=== PATIENT | female | born 2000 | race Caucasian/White ===

== ENCOUNTER 2021-12-29 22:38 | Emergency (ER) | payer OTHER ==
[~2021-12-29] VITALS: Ht 172.7 cm; Wt 98.0 kg
[2021-12-29] MEDS ORDERED: ESCITALOPRAM OX10 MG PO (22:57)
[2021-12-30] MEDS ORDERED: ONDANSETRON ODT8 MG PO (01:47)
== END 2021-12-30 01:58 | disposition home or self-care (01) ==
LOC: ED 22:38
DX: K52.9 Noninfective gastroenteritis and colitis, unspecified (principal); Z79.899 Other long term (current) drug therapy
CPT/HCPCS: 36415; 74177; 80053; 81001; 83735; 84703; 85025; 96361; 96375; 96376; 99284-25; A9270; J2405; J2765; J7030; Q9967

== ENCOUNTER 2022-01-30 21:30 | Emergency (ER) | payer OTHER, BC ==
[~2022-01-30] VITALS: Ht 172.7 cm; Wt 92.5 kg
[~2022-01-30 21:30] MED LIST: ESCITALOPRAM OX10 MG PO; ONDANSETRON ODT8 MG PO
== END 2022-01-31 02:06 | disposition home or self-care (01) ==
LOC: ED 21:30
DX: S01.81XA Laceration without foreign body of other part of head, initial encounter (principal); M25.562 Pain in left knee; M25.561 Pain in right knee; W01.198A Fall on same level from slipping, tripping and stumbling with subsequent striking against other object, initial encounter; Y99.0 Civilian activity done for income or pay; Z79.899 Other long term (current) drug therapy
CPT/HCPCS: 12011; 99283-25; A9270